=== PATIENT | female | born 2000 | race Two or more races ===

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

== ENCOUNTER 2019-02-01 17:54 | Emergency (ER) | payer OTHER ==
[2019-02-01 18:38] VITALS: BP 123/81
[2019-02-01] MEDS ORDERED: Amoxicillin PO (*) 500 MG CAP PO ONE (19:47)
[2019-02-01] MEDS ORDERED: Pantoprazole TAB * 40 MG TAB PO ONE (19:47)
--- NOTE | 2019-02-01 19:50 | UC ---
Throat Pain/Nasal Manuel HPI - HPI Summary HPI Summary: 18-year-old female. Comes in with a chief complaint of sore throat. Started about a week ago. She does have GERD and has had some GERD symptoms. She's also concerned about the possibility of pharyngeal sexually transmitted infection. She has had some rhinorrhea. No sinus pressure. Rhinorrhea is clear. No difficulty swallowing or breathing. Denies any concern of vaginal STI. - History of Current Complaint Chief Complaint: UCRespiratory Stated Complaint: SORE THROAT Time Seen by Provider: 02/01/19 19:30 Hx Last Menstrual Period: 3 weeks ago Pain Intensity: 6 - Allergies/Home Medications Allergies/Adverse Reactions: Allergies Allergy/AdvReac Type Severity Reaction Status Date / Time soy Allergy Unknown Verified 02/01/19 18:38 Reaction Details ENVIRONMENTAL Allergy WATERY Uncoded 02/01/19 18:38 EYES, STUFFY NOSE Home Medications: Home Medications Cold & Flu Med* 1 tab PO ONCE PRN 02/01/19 [History Confirmed 02/01/19] Ibuprofen TAB* [Advil TAB*] 400 mg PO ONCE PRN 02/01/19 [History Confirmed 02/01] PMH/Surg Hx/FS Hx/Imm Hx Previously Healthy: Yes - Surgical History Surgical History: Yes Surgery Procedure, Year, and Place: [facility] - Family History Known Family History: Positive: Non-Contributory - Social History Alcohol Use: None Substance Use Type: None Smoking Status (MU): Former Smoker - Immunization History Most Recent Influenza Vaccination: 2017 Most Recent Pneumonia Vaccination: none Review of Systems All Other Systems Reviewed And Are Negative: Yes Constitutional: Positive: Negative Skin: Positive: Negative Eyes: Positive: Negative ENT: Positive: Sore Throat, Nasal Discharge Respiratory: Positive: Negative Cardiovascular: Positive: Negative Gastrointestinal: Positive: Negative Genitourinary: Positive: Negative Motor: Positive: Negative Neurovascular: Positive: Negative Musculoskeletal: Positive: Negative Neurological: Positive: Negative Psychological: Positive: Negative Is Patient Immunocompromised?: No Physical Exam Triage Information Reviewed: Yes Appearance: Well-Appearing, No Pain Distress, Well-Nourished Vital Signs: Initial Vital Signs Temp 98.4 F 02/01/19 18:35 Pulse 91 02/01/19 18:35 Resp 16 02/01/19 18:35 BP 123/81 02/01/19 18:35 Pulse Ox 100 02/01/19 18:35 Vital Signs Reviewed: Yes Eye Exam: Normal Eyes: Positive: Conjunctiva Clear ENT: Positive: Pharyngeal erythema, Nasal congestion, TMs normal Neck: Positive: Supple Respiratory: Positive: Lungs clear, Normal breath sounds, No respiratory distress Cardiovascular: Positive: RRR Abdomen Description: Positive: Nontender, Soft Musculoskeletal: Positive: Strength Intact, ROM Intact Neurological: Positive: Alert, Muscle Tone Normal Psychological: Positive: Age Appropriate Behavior Skin Exam: Normal Throat Pain/Nasal Course/Dx - Course Course Of Treatment: Because of her GERD symptoms we'll treat with omeprazole 20 mg by mouth twice a day. Patient requests posterior pharynx GC chlamydia testing results are pending. Also discussed with the symptoms going on so long whether or not treat with antibiotics the patient prefers to be treated with antibiotics at this time. Patient follow-up with primary care doctor if not completely improved or get reevaluated sooner if worse or any questions or concerns. - Differential Dx/Diagnosis Provider Diagnosis: Sore throat Discharge ED - Sign-Out/Discharge Documenting (check all that apply): Patient Departure All imaging exams completed and their final reports reviewed: No Studies - Discharge Plan Condition: Stable Disposition: HOME Prescriptions: Amoxicillin PO (*) [Amoxicillin 875 MG (*)] 875 mg PO BID #19 tab Omeprazole 20 mg PO BID #30 tab. Patient Education Materials: Pharyngitis (ED), Gastroesophageal Reflux Disease (ED) Referrals: [facility] [place] PHYSICIAN REFERRAL [Outside] Additional Instructions: FOLLOW UP WITH YOUR DOCTOR IF NOT COMPLETELY IMPROVED. GET RECHECKED SOONER IF YOUR CONDITION WORSENS OR ANY QUESTIONS OR CONCERNS. - Billing Disposition and Condition Condition: STABLE Disposition: Home
[2019-02-03 23:29] LABS: C. trach Amplified RNA Negative (Negative); N Gonorr Amplified RNA Negative (Negative); Source THROAT
--- NOTE | 2019-02-04 07:13 | UC ---
- Progress Note Progress Note: Throat neg GC/CH no change ljj Course/Dx - Diagnoses Provider Diagnoses: Sore throat Discharge ED - Sign-Out/Discharge Documenting (check all that apply): Post-Discharge Follow Up All imaging exams completed and their final reports reviewed: No Studies - Discharge Plan Condition: Stable Disposition: HOME Prescriptions: Amoxicillin PO (*) [Amoxicillin 875 MG (*)] 875 mg PO BID #19 tab Omeprazole 20 mg PO BID #30 tab. Patient Education Materials: Pharyngitis (ED), Gastroesophageal Reflux Disease (ED) Referrals: [facility] [place] PHYSICIAN REFERRAL [Outside] Additional Instructions: FOLLOW UP WITH YOUR DOCTOR IF NOT COMPLETELY IMPROVED. GET RECHECKED SOONER IF YOUR CONDITION WORSENS OR ANY QUESTIONS OR CONCERNS. - Billing Disposition and Condition Condition: STABLE Disposition: Home
== END 2019-02-01 20:13 | disposition home or self-care (01) ==
LOC: UCEAST 17:54
DX: J02.9 Acute pharyngitis, unspecified (principal); K21.9 Gastro-esophageal reflux disease without esophagitis; Z91.09 Other allergy status, other than to drugs and biological substances; Z91.018 Allergy to other foods; Z87.891 Personal history of nicotine dependence
CPT/HCPCS: 87491; 87591; 87651; 99212; A9270-GY; G0463

== ENCOUNTER 2019-03-01 17:41 | Emergency (ER) | payer OTHER ==
[2019-03-01 18:06] VITALS: BP 141/79
--- NOTE | 2019-03-01 18:32 | UC ---
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 - History of Current Complaint Chief Complaint: UCLowerExtremity Stated Complaint: ANKLE INJURY Time Seen by Provider: 03/01/19 18:29 Hx Obtained From: Patient Hx Last Menstrual Period: current ?: No Onset/Duration: Sudden Onset Severity Initially: Mild Severity Currently: Mild Pain Intensity: 5 Aggravating Factor(s): Ambulation Alleviating Factor(s): Rest Able to Bear Weight: Yes - Allergies/Home Medications Allergies/Adverse Reactions: Allergies Allergy/AdvReac Type Severity Reaction Status Date / Time soy Allergy Unknown Verified 03/01/19 18:06 Reaction Details ENVIRONMENTAL Allergy WATERY Uncoded 03/01/19 18:06 EYES, STUFFY NOSE Home Medications: Home Medications Omeprazole CAP(NF) [PriLOSEC CAP(NF)] 20 mg PO BID 03/01/19 [History Confirmed 03/01/19] PMH/Surg Hx/FS Hx/Imm Hx Previously Healthy: Yes Psychological History: Anxiety - Surgical History Surgical History: Yes Surgery Procedure, Year, and Place: T&A, [facility] - Family History Known Family History: Positive: Non-Contributory - Social History Occupation: Student Lives: Dormitory/Roommates Alcohol Use: None Substance Use Type: None Smoking Status (MU): Former Smoker - Immunization History Most Recent Influenza Vaccination: 2017 Most Recent Pneumonia Vaccination: none Review of Systems All Other Systems Reviewed And Are Negative: Yes Skin: Positive: Negative Motor: Positive: Negative Neurovascular: Positive: Negative Musculoskeletal: Positive: Other: - Minimal pain left lateral ankle with normal swelling. She has been walking on it and wearing an elastic ankle brace. Neurological: Positive: Negative Is Patient Immunocompromised?: No Physical Exam Triage Information Reviewed: Yes Appearance: Well-Appearing, No Pain Distress, Well-Nourished Vital Signs: Initial Vital Signs Temp 98.3 F 03/01/19 18:02 Pulse 90 03/01/19 18:02 Resp 16 03/01/19 18:02 BP 141/79 03/01/19 18:02 Pulse Ox 100 03/01/19 18:02 Vital Signs Reviewed: Yes Musculoskeletal: Positive: Strength Intact, ROM Intact, Other: - Very mild pain on palpation to the lateral left ankle. Mild swelling present. Achilles is intact. Good peripheral pulses neuro sensation and capillary refill. left Foot is nontender. Base of the fifth and first metatarsal's nontender. Neurological Exam: Normal Psychological Exam: Normal Skin Exam: Normal Lower Extremity Course/Dx - Course Course Of Treatment: Left ankle x-ray: Negative as interpreted by myself and Dr. Evans. The patient can continue to use the ankle brace she has. She is to follow-up with orthopedist if no improvement in 3 or 4 days. - Differential Dx/Diagnosis Provider Diagnosis: Left ankle sprain Discharge ED - Sign-Out/Discharge Documenting (check all that apply): Patient Departure All imaging exams completed and their final reports reviewed: No - Discharge Plan Condition: Good Disposition: HOME Patient Education Materials: Ankle Sprain (DC) Referrals: No Primary Care Phys,NOPCP [Primary Care Provider] - Sugar Reynolds MD [Medical Doctor] - Additional Instructions: Continue to wear your ankle brace for comfort. Follow-up with the orthopedist if no improvement in 4 or 5 days. May take Tylenol or Motrin for pain. - Billing Disposition and Condition Condition: GOOD Disposition: Home
--- NOTE | 2019-03-02 11:33 | UC ---
- Progress Note Progress Note: wet read correct Course/Dx - Diagnoses Provider Diagnoses: Left ankle sprain Discharge ED - Sign-Out/Discharge Documenting (check all that apply): Post-Discharge Follow Up All imaging exams completed and their final reports reviewed: Yes - Discharge Plan Condition: Good Disposition: HOME Patient Education Materials: Ankle Sprain (DC) Referrals: No Primary Care Phys,NOPCP [Primary Care Provider] - Sugar Reynolds MD [Medical Doctor] - Additional Instructions: Continue to wear your ankle brace for comfort. Follow-up with the orthopedist if no improvement in 4 or 5 days. May take Tylenol or Motrin for pain. - Billing Disposition and Condition Condition: GOOD Disposition: Home
== END 2019-03-01 18:54 | disposition home or self-care (01) ==
LOC: UCEAST 17:41
DX: S93.402A Sprain of unspecified ligament of left ankle, initial encounter (principal); F41.9 Anxiety disorder, unspecified; Z91.09 Other allergy status, other than to drugs and biological substances; Z91.018 Allergy to other foods; Z87.891 Personal history of nicotine dependence; X50.0XXA Overexertion from strenuous movement or load, initial encounter; Y93.01 Activity, walking, marching and hiking; Y92.9 Unspecified place or not applicable
CPT/HCPCS: 99211; G0463